=== PATIENT | male | born 1955 | race African-American/Black ===

== ENCOUNTER 2017-09-28 10:02 | Inpatient (IN) | payer MEDICARE, MEDICAID ==
[~2017-09-28] VITALS: Ht 165.1 cm; Wt 72.6 kg
[2017-09-28] MEDS ORDERED: SODIUM CHLORIDE 0.9% 500 ML IV ONE (11:10)
[2017-09-28 11:48] LABS: CLARITY URINE CLEAR (CLEAR); COLOR URINE ORANGE (YELLOW); KETONES URINE 2+ (NEGATIVE); LEUKOCYTE ESTERASE URINE NEGATIVE (NEGATIVE); NITRITE URINE NEGATIVE (NEGATIVE); OCCULT BLOOD URINE 1+ (NEGATIVE); PROTEIN URINE 1+ (NEGATIVE); SPECIFIC GRAVITY URINE 1.026 (1.005-1.030)
[2017-09-28 11:50] LABS: BASOPHILS % 0.8 % (0.0-2.0); HEMATOCRIT. 36.1 % (42.0-52.0); HEMOGLOBIN. 12.2 g/dL (14.0-18.0); LYMPHOCYTES % 9.7 % (20.0-50.0); MEAN CORPUSCULAR HEMOGLOBIN 33.7 pg (28.0-32.0); MEAN CORPUSCULAR VOLUME 99.9 fL (80.0-94.0); MEAN PLATELET VOLUME 8.9 fl (7.4-10.4); MONOCYTES % 4.5 % (2.0-8.0); PLATELET 112 x1000/uL (130-400); RED BLOOD CELL COUNT 3.62 mill/uL (4.7-6.1)
[2017-09-28 11:57] LABS: CHLORIDE 106 mEq/L (98-107)
[2017-09-28 11:58] LABS: PROTHROMBIN TIME 10.6 sec (9.4-11.6)
[2017-09-28] MEDS ORDERED: ASPIRIN 81MG TABLET PO NR (18:45)
[2017-09-28] MEDS ORDERED: MAGNESIUM 2 G PREMIX 50 ML IV ONE (19:00)
[2017-09-28] MEDS ORDERED: POTASSIUM CHLORIDE 20MEQ/PACKET PO ONE (19:00)
[2017-09-28] MEDS ORDERED: POTASSIUM CHLORIDE 20MEQ/PACKET PO NR (20:00)
[2017-09-28 22:20] VITALS: BP 184/106
[2017-09-29] VITALS (7 sets, daily range): BP systolic 137–150; BP diastolic 75–97
[2017-09-29] MEDS ORDERED: CLONIDINE 0.1MG TABLET PO PRN (02:30)
[2017-09-29] MEDS ORDERED: HYDROCODONE/ACETAMINOPHEN 5/325MG TABLET PO PRN (02:30)
[2017-09-29] MEDS ORDERED: ONDANSETRON HCL 4MG/2ML VIAL IV PRN (02:30)
[2017-09-29] MEDS ORDERED: DEXT 5%/0.45% NACL 1000ML 1,000 ML IV ONE (02:30)
[2017-09-29] MEDS ORDERED: DEXTROSE 50% WATER 50ML SYRINGE IV PRN (02:45)
[2017-09-29] MEDS: BLOOD SUGAR DIAGNOSTIC STRIP TEST SCH ×3 (06:03→17:38)
[2017-09-29] MEDS: INSULIN LISPRO 100 UNITS/ML SUBCUT SCH ×3 (06:03→17:38)
[2017-09-29] MEDS ORDERED: METH-611 GT (07:39)
[2017-09-29] MEDS ORDERED: METF500T6 MT (07:40)
[2017-09-29 07:55] LABS: HEMATOCRIT. 33.7 % (42.0-52.0); HEMOGLOBIN. 11.5 g/dL (14.0-18.0); MEAN CORPUSCULAR HEMOGLOBIN 33.8 pg (28.0-32.0); MEAN CORPUSCULAR VOLUME 98.8 fL (80.0-94.0); PLATELET 91 x1000/uL (130-400); RED BLOOD CELL COUNT 3.41 mill/uL (4.7-6.1); RED CELL DISTRIBUTION WIDTH 14.7 % (11.6-14.6)
[2017-09-29 08:13] LABS: CHLORIDE 101 mEq/L (98-107)
[2017-09-29] MEDS ORDERED: ASPIRIN 81MG TABLET PO SCH (09:00)
[2017-09-30 07:34] LABS: PLATELET ESTIMATE SLIGHTLY DECREASED
== END 2017-09-29 19:09 | disposition home or self-care (01) | DRG 69 ==
LOC: EDSEX 10:02 → EDBEDREQ 11:23 → ER 11:35 → 6WST 15:10 → EDBEDREQ 15:16 → ENRESERV 21:44
PROVIDERS: ADMIT Hospitalist; ATTEND Hospitalist
DX: G45.9 Transient cerebral ischemic attack, unspecified (principal); E87.6 Hypokalemia; F17.200 Nicotine dependence, unspecified, uncomplicated; I10 Essential (primary) hypertension; E83.42 Hypomagnesemia; E88.09 Other disorders of plasma-protein metabolism, not elsewhere classified; E11.649 Type 2 diabetes mellitus with hypoglycemia without coma; R74.0 Nonspecific elevation of levels of transaminase and lactic acid dehydrogenase [LDH]; I48.91 Unspecified atrial fibrillation; Z93.3 Colostomy status
CPT/HCPCS: 36415; 70450; 71045; 80048; 80053; 81003; 82962; 83721; 83735; 83880; 84484; 85007; 85025; 85027; 85610; 93005; J2405; J3475; J7030; J7040